=== PATIENT | male | born 1990 | race Hispanic/Latino ===

== ENCOUNTER 2018-10-03 12:49 | Emergency (ER) | payer OTHER ==
[~2018-10-03] VITALS: Ht 177.8 cm; Wt 86.2 kg
[~2018-10-03 12:49] MED LIST: ISENTRESS400 MG PO; TRUVADA 200 MG1 EACH PO
== END 2018-10-03 14:25 | disposition home or self-care (01) ==
LOC: ED 12:49
DX: S00.83XA Contusion of other part of head, initial encounter (principal); Z79.899 Other long term (current) drug therapy; Y04.0XXA Assault by unarmed brawl or fight, initial encounter
CPT/HCPCS: 70450; 70486; 90471; 90715; 99284-25